=== PATIENT | male | born 1935 | race Caucasian/White ===

== ENCOUNTER → 2017-12-07 | Outpatient (CLI) | payer MEDICARE ==
[2017-07-17 13:08] VITALS: BMI 28.5
[~2017-12-07] MED LIST: ACET-1966 PO; ALL100 PO; ALLO-118 PO; AMLO-98 PO; AMLO-99 PO; ASPI-1471 PO; ASPI-757 PO; ASPI81TA94 PO; BLOO-725 MC; CEFT1VIA52 IV; CHOL100058 PO; COLC0.6T2 PO; DOCU-416 PO; FAMO20TA28 PO; FEBU80TA3 PO; FENO45CA PO; FURO-43 PO; FURO-47 PO; FURO80TA70 PO; GABA-549 PO; GABA300S PO; HYDR-4309 PO; HYDR25TA66 PO; HYDR50TA35 PO; IBUP-1618 PO; IBUP-1671 PO; INSU100C14 SQ; INSU100I28; INSU100I28 SQ; INSU200I SUBQ; INSU300I SC; LANI SUBQ; LOR5/325 PO; MAX75 PO; METO25TA91 PO; NOVALOG SQ; OMEG-11 PO; OMEG500C7 PO; PIOG30TA27 PO; PRAV20TA65 PO; PRE10 PO; SITA100T9 PO; SOME BP MED; SULF1TAB24; TRAM-420 PO; TRIA-18 PO; VALS40TA6 PO; WARF-18 PO; [UNRECOGNIZED DRUG - CODE] PO; insulin SUBQ; water pill
[2017-12-07 11:17] LABS: INR 1.91
== END ==
LOC: LAB 10:55
PROVIDERS: ATTEND Nurse Practitioner Family
DX: I50.9 Heart failure, unspecified (principal); Z86.79 Personal history of other diseases of the circulatory system
CPT/HCPCS: 36415; 85610

== ENCOUNTER → 2017-12-20 | Outpatient (CLI) | payer MEDICARE ==
[2017-07-17 13:08] VITALS: BMI 28.5
[2017-12-20 16:49] LABS: INR 3.27
== END ==
LOC: LAB 16:23
PROVIDERS: ATTEND Nurse Practitioner Family
DX: I50.9 Heart failure, unspecified (principal); Z86.79 Personal history of other diseases of the circulatory system
CPT/HCPCS: 36415; 85610

== ENCOUNTER → 2018-01-07 | Outpatient (CLI) | payer MEDICARE ==
[2017-07-17 13:08] VITALS: BMI 28.5
[~2018-01-07] MED LIST changes: -WARF-18 PO; +WARF5TAB23 PO
[2018-01-07 10:00] LABS: INR 3.31
== END ==
LOC: LAB 09:24
PROVIDERS: ATTEND Nurse Practitioner Family
DX: I50.9 Heart failure, unspecified (principal); Z86.79 Personal history of other diseases of the circulatory system
CPT/HCPCS: 36415; 85610

== ENCOUNTER → 2018-02-04 | Outpatient (CLI) | payer MEDICARE ==
[2017-07-17 13:08] VITALS: BMI 28.5
[2018-02-04 13:03] LABS: INR 3.3
== END ==
LOC: LAB 12:29
PROVIDERS: ATTEND Nurse Practitioner Family
DX: Z86.79 Personal history of other diseases of the circulatory system (principal); I50.9 Heart failure, unspecified
CPT/HCPCS: 36415; 85610

== ENCOUNTER → 2018-02-13 | Outpatient (CLI) | payer MEDICARE ==
[2017-07-17 13:08] VITALS: BMI 28.5
[2018-02-13 15:06] LABS: INR 2.84
== END ==
LOC: LAB 14:46
PROVIDERS: ATTEND Nurse Practitioner Family
DX: I50.9 Heart failure, unspecified (principal); Z86.79 Personal history of other diseases of the circulatory system
CPT/HCPCS: 36415; 85610

== ENCOUNTER → 2018-03-08 | Outpatient (CLI) | payer MEDICARE ==
[2017-07-17 13:08] VITALS: BMI 28.5
[2018-03-08 11:42] LABS: INR 2.46
== END ==
LOC: LAB 10:45
PROVIDERS: ATTEND Nurse Practitioner Family
DX: I50.9 Heart failure, unspecified (principal); N18.3 Chronic kidney disease, stage 3 (moderate); E11.40 Type 2 diabetes mellitus with diabetic neuropathy, unspecified; R60.9 Edema, unspecified; Z86.79 Personal history of other diseases of the circulatory system; G47.33 Obstructive sleep apnea (adult) (pediatric); E78.00 Pure hypercholesterolemia, unspecified; I45.89 Other specified conduction disorders; E55.9 Vitamin D deficiency, unspecified
CPT/HCPCS: 36415; 82040; 82247; 82310; 82374; 82435; 82465; 82565; 82607; 82947; 83036; 83718; 83880; 84075; 84132; 84155; 84295; 84450; 84460; 84478; 84520; 85610

== ENCOUNTER → 2018-03-28 | Outpatient (CLI) | payer MEDICARE ==
[2017-07-17 13:08] VITALS: BMI 28.5
[2018-03-28 11:39] LABS: INR 3.2
== END ==
LOC: LAB 10:57
PROVIDERS: ATTEND Nurse Practitioner Family
DX: I50.9 Heart failure, unspecified (principal); Z86.79 Personal history of other diseases of the circulatory system
CPT/HCPCS: 36415; 85610

== ENCOUNTER → 2018-04-16 | Outpatient (CLI) | payer MEDICARE ==
[2017-07-17 13:08] VITALS: BMI 28.5
[2018-04-16 10:23] LABS: INR 3.05
== END ==
LOC: LAB 09:53
PROVIDERS: ATTEND Nurse Practitioner Family
DX: I50.9 Heart failure, unspecified (principal); Z76.89 Persons encountering health services in other specified circumstances
CPT/HCPCS: 36415; 85610

== ENCOUNTER → 2018-04-23 | Outpatient (CLI) | payer MEDICARE ==
[2017-07-17 13:08] VITALS: BMI 28.5
[2018-04-23 10:21] LABS: INR 3.77
== END ==
LOC: LAB 09:25
PROVIDERS: ATTEND Nurse Practitioner Family
DX: Z51.81 Encounter for therapeutic drug level monitoring (principal); Z86.79 Personal history of other diseases of the circulatory system; I50.9 Heart failure, unspecified
CPT/HCPCS: 85610

== ENCOUNTER → 2018-04-23 | Outpatient (CLI) | payer MEDICARE ==
[2017-07-17 13:08] VITALS: BMI 28.5
[2018-04-23 09:44] LABS: PLATELET COUNT, AUTOMATED 167 K/uL (150-450)
== END ==
LOC: LAB 09:21
PROVIDERS: ATTEND Internal Medicine Nephrology
DX: I12.9 Hypertensive chronic kidney disease with stage 1 through stage 4 chronic kidney disease, or unspecified chronic kidney disease (principal); N18.4 Chronic kidney disease, stage 4 (severe); E11.29 Type 2 diabetes mellitus with other diabetic kidney complication; E55.9 Vitamin D deficiency, unspecified
CPT/HCPCS: 36415; 82040; 82306; 82310; 82374; 82435; 82565; 82947; 83970; 84100; 84132; 84295; 84520; 85025

== ENCOUNTER → 2018-05-08 | Outpatient (CLI) | payer MEDICARE ==
[2017-07-17 13:08] VITALS: BMI 28.5
[2018-05-08 10:39] LABS: INR 2.44
== END ==
LOC: LAB 10:18
PROVIDERS: ATTEND Nurse Practitioner Family
DX: I50.9 Heart failure, unspecified (principal); Z86.79 Personal history of other diseases of the circulatory system
CPT/HCPCS: 36415; 85610

== ENCOUNTER → 2018-05-20 | Outpatient (CLI) | payer MEDICARE ==
[2017-07-17 13:08] VITALS: BMI 28.5
[2018-05-20 09:40] LABS: INR 2.9
== END ==
LOC: LAB 08:32
PROVIDERS: ATTEND Nurse Practitioner Family
DX: I50.9 Heart failure, unspecified (principal); Z86.79 Personal history of other diseases of the circulatory system
CPT/HCPCS: 36415; 85610

== ENCOUNTER → 2018-06-05 | Outpatient (CLI) | payer MEDICARE ==
[2017-07-17 13:08] VITALS: BMI 28.5
[2018-06-05 11:58] LABS: INR 2.48
== END ==
LOC: LAB 11:17
PROVIDERS: ATTEND Nurse Practitioner Family
DX: I50.9 Heart failure, unspecified (principal); Z86.79 Personal history of other diseases of the circulatory system
CPT/HCPCS: 36415; 85610

== ENCOUNTER → 2018-06-10 | Outpatient (CLI) | payer MEDICARE ==
[2017-07-17 13:08] VITALS: BMI 28.5
[2018-06-10 10:54] LABS: INR 2.79
== END ==
LOC: LAB 10:22
PROVIDERS: ATTEND Nurse Practitioner Family
DX: I12.9 Hypertensive chronic kidney disease with stage 1 through stage 4 chronic kidney disease, or unspecified chronic kidney disease (principal); I50.9 Heart failure, unspecified; N18.4 Chronic kidney disease, stage 4 (severe); E11.40 Type 2 diabetes mellitus with diabetic neuropathy, unspecified; E11.29 Type 2 diabetes mellitus with other diabetic kidney complication; R60.9 Edema, unspecified; E55.9 Vitamin D deficiency, unspecified; Z86.79 Personal history of other diseases of the circulatory system
CPT/HCPCS: 36415; 82040; 82247; 82306; 82310; 82374; 82435; 82565; 82607; 82947; 83036; 83880; 84075; 84132; 84155; 84295; 84450; 84460; 84520; 85610

== ENCOUNTER → 2018-06-21 | Outpatient (CLI) | payer MEDICARE ==
[2017-07-17 13:08] VITALS: BMI 28.5
[2018-06-21 14:03] LABS: INR 2.11
== END ==
LOC: LAB 13:41
PROVIDERS: ATTEND Nurse Practitioner Family
DX: I50.9 Heart failure, unspecified (principal); Z86.79 Personal history of other diseases of the circulatory system
CPT/HCPCS: 36415; 85610

== ENCOUNTER → 2018-06-25 | Outpatient (CLI) | payer MEDICARE ==
[2017-07-17 13:08] VITALS: BMI 28.5
[2018-06-25 10:44] LABS: INR 3.94
== END ==
LOC: LAB 10:16
PROVIDERS: ATTEND Nurse Practitioner Family
DX: Z86.79 Personal history of other diseases of the circulatory system (principal); I50.9 Heart failure, unspecified
CPT/HCPCS: 36415; 85610

== ENCOUNTER → 2018-07-05 | Outpatient (CLI) | payer MEDICARE ==
[2017-07-17 13:08] VITALS: BMI 28.5
[2018-07-05 10:53] LABS: INR 3.3
== END ==
LOC: LAB 10:28
PROVIDERS: ATTEND Nurse Practitioner Family
DX: I50.9 Heart failure, unspecified (principal); Z86.79 Personal history of other diseases of the circulatory system
CPT/HCPCS: 36415; 85610

== ENCOUNTER → 2018-07-12 | Outpatient (CLI) | payer MEDICARE ==
[2017-07-17 13:08] VITALS: BMI 28.5
[2018-07-12 12:29] LABS: INR 5.22
== END ==
LOC: LAB 10:40
PROVIDERS: ATTEND Nurse Practitioner Family
DX: Z86.79 Personal history of other diseases of the circulatory system (principal); I50.9 Heart failure, unspecified
CPT/HCPCS: 36415; 85610

== ENCOUNTER → 2018-07-15 | Outpatient (CLI) | payer MEDICARE ==
[2017-07-17 13:08] VITALS: BMI 28.5
[2018-07-15 11:22] LABS: INR 3.54
== END ==
LOC: LAB 10:44
PROVIDERS: ATTEND Nurse Practitioner Family
DX: Z86.79 Personal history of other diseases of the circulatory system (principal); I50.9 Heart failure, unspecified
CPT/HCPCS: 36415; 85610

== ENCOUNTER → 2018-07-19 | Outpatient (CLI) | payer MEDICARE ==
[2017-07-17 13:08] VITALS: BMI 28.5
[2018-07-19 09:31] LABS: INR 1.64
== END ==
LOC: LAB 08:59
PROVIDERS: ATTEND Nurse Practitioner Family
DX: Z86.79 Personal history of other diseases of the circulatory system (principal); I50.9 Heart failure, unspecified
CPT/HCPCS: 36415; 85610

== ENCOUNTER → 2018-07-22 | Outpatient (CLI) | payer MEDICARE ==
[2017-07-17 13:08] VITALS: BMI 28.5
[2018-07-22 11:37] LABS: INR 1.36
== END ==
LOC: LAB 11:02
PROVIDERS: ATTEND Nurse Practitioner Family
DX: Z86.79 Personal history of other diseases of the circulatory system (principal); I50.9 Heart failure, unspecified
CPT/HCPCS: 36415; 85610

== ENCOUNTER → 2018-08-06 | Outpatient (CLI) | payer MEDICARE ==
[2017-07-17 13:08] VITALS: BMI 28.5
[~2018-08-06] MED LIST changes: +AMLO-113 PO; -AMLO-99 PO
[2018-08-06 10:03] LABS: INR 3.76
== END ==
LOC: LAB 09:36
PROVIDERS: ATTEND Nurse Practitioner Family
DX: Z86.79 Personal history of other diseases of the circulatory system (principal); I50.9 Heart failure, unspecified
CPT/HCPCS: 36415; 85610

== ENCOUNTER → 2018-08-14 | Outpatient (CLI) | payer MEDICARE ==
[2017-07-17 13:08] VITALS: BMI 28.5
[2018-08-14 11:21] LABS: INR 4.53
== END ==
LOC: LAB 10:37
PROVIDERS: ATTEND Nurse Practitioner Family
DX: Z86.79 Personal history of other diseases of the circulatory system (principal); I50.9 Heart failure, unspecified
CPT/HCPCS: 36415; 85610

== ENCOUNTER → 2018-08-14 | Outpatient (CLI) | payer MEDICARE ==
[2017-07-17 13:08] VITALS: BMI 28.5
[2018-08-14 11:00] LABS: PLATELET COUNT, AUTOMATED 176 K/uL (150-450)
== END ==
LOC: LAB 10:36
PROVIDERS: ATTEND Nurse Practitioner Family
DX: I50.9 Heart failure, unspecified (principal); N18.3 Chronic kidney disease, stage 3 (moderate); E11.40 Type 2 diabetes mellitus with diabetic neuropathy, unspecified; R60.0 Localized edema; S81.802D Unspecified open wound, left lower leg, subsequent encounter; E78.00 Pure hypercholesterolemia, unspecified; I10 Essential (primary) hypertension
CPT/HCPCS: 82040; 82247; 82306; 82310; 82374; 82435; 82465; 82565; 82607; 82947; 83036; 83718; 83880; 84075; 84132; 84155; 84295; 84443; 84450; 84460; 84478; 84520; 85025

== ENCOUNTER → 2018-08-22 | Outpatient (CLI) | payer MEDICARE ==
[2017-07-17 13:08] VITALS: BMI 28.5
[2018-08-22 11:05] LABS: INR 2.9
== END ==
LOC: LAB 10:28
PROVIDERS: ATTEND Nurse Practitioner Family
DX: Z51.81 Encounter for therapeutic drug level monitoring (principal); I50.9 Heart failure, unspecified; Z86.79 Personal history of other diseases of the circulatory system
CPT/HCPCS: 36415; 85610

== ENCOUNTER → 2018-08-29 | Outpatient (CLI) | payer MEDICARE ==
[2017-07-17 13:08] VITALS: BMI 28.5
[2018-08-29 09:44] LABS: INR 3.64
== END ==
LOC: LAB 08:47
PROVIDERS: ATTEND Nurse Practitioner Family
DX: I50.9 Heart failure, unspecified (principal); Z86.79 Personal history of other diseases of the circulatory system
CPT/HCPCS: 36415; 85610

== ENCOUNTER → 2018-08-29 | Outpatient (CLI) | payer MEDICARE ==
[2017-07-17 13:08] VITALS: BMI 28.5
[2018-08-29 09:17] LABS: PLATELET COUNT, AUTOMATED 174 K/uL (150-450)
== END ==
LOC: LAB 08:42
PROVIDERS: ATTEND Nurse Practitioner Family
DX: I12.9 Hypertensive chronic kidney disease with stage 1 through stage 4 chronic kidney disease, or unspecified chronic kidney disease (principal); I50.9 Heart failure, unspecified; N18.3 Chronic kidney disease, stage 3 (moderate); E11.40 Type 2 diabetes mellitus with diabetic neuropathy, unspecified; R60.0 Localized edema; S81.802D Unspecified open wound, left lower leg, subsequent encounter; E78.00 Pure hypercholesterolemia, unspecified
CPT/HCPCS: 82040; 82247; 82306; 82310; 82374; 82435; 82465; 82565; 82607; 82947; 83036; 83718; 83880; 84075; 84132; 84155; 84295; 84443; 84450; 84460; 84478; 84520; 85025

== ENCOUNTER → 2018-09-16 | Outpatient (CLI) | payer MEDICARE ==
[2017-07-17 13:08] VITALS: BMI 28.5
[~2018-09-16] MED LIST changes: -HYDR-4309 PO; +HYDR-653 PO
[2018-09-16 12:54] LABS: INR 4.39
== END ==
LOC: LAB 12:23
PROVIDERS: ATTEND Nurse Practitioner Family
DX: I50.9 Heart failure, unspecified (principal); Z86.79 Personal history of other diseases of the circulatory system
CPT/HCPCS: 36415; 85610

== ENCOUNTER → 2018-09-25 | Outpatient (CLI) | payer MEDICARE ==
[2017-07-17 13:08] VITALS: BMI 28.5
[2018-09-25 11:07] LABS: INR 3.28
== END ==
LOC: LAB 10:20
PROVIDERS: ATTEND Nurse Practitioner Family
DX: Z86.79 Personal history of other diseases of the circulatory system (principal); I50.9 Heart failure, unspecified
CPT/HCPCS: 36415; 85610

== ENCOUNTER 2018-10-04 10:00 | Outpatient (RCR) | payer MEDICARE ==
[2017-07-17 13:08] VITALS: BMI 28.5
--- NOTE | 2018-09-04 11:27 | PT INITIAL EVALUATION ---
MEDICAL DIAGNOSIS: unroofed blister L)anterior sandra; complicated by venous insufficiency & DM TREATMENT DIAGNOSIS: same DATE OF ONSET: SUBJECTIVE: Pt seen this morning by his repairer, Dr. Jovel, who referred him for wound care due to extensive epidermal skin loss at L) anterior sandra. Pt notes that he has been seeing his PCP ADINA Riley for skin care due to previous "boils" that tend to errupt on his lower legs. Pt describes a clear dressing that was placed on at previous visit, but when he removed it, it tore away the entire epidermal layer, similar to unroofing a blister. Pt now presents with significant drainage and bleeding that has soaked through an abd pad. REHAB PROBLEM LIST: Open wound at L) anterior sandra PREVIOUS MEDICAL HISTORY: DMII, diabetic neuropathy, MT (2013),CABG (2013), L) great toe amputation (2013), R) 2nd toe dorsum of DIP healed wound (April 2017), L) TKA (Jul 2017). 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 90% granulation tissue with 10% yellow slough at medial side. Girth of ankle: R)30cm L)30.5cm. Girth of calf: R)42cm L)42.5cm ASSESSMENT: Non-excisional debridement completed with the use of tweezers to a depth of subcutaneous tissue in order to remove loosely adhered yellow slough at medial side of wound bed. Base of wound is comprised of 90% granulation tissue and 10% yellow slough. Wound cleansed with sterile saline and covered with vasaline gauze, followed by non-adherent optilock absorbant dressing, secured with coflex 2 stage lite compression wrap in a retrograde manner to gently address edema. Pt encouraged to elevate LE's as able to address edema as well. Short Term Goals 1. Wound to demo 100% granulation base with no signs or symptoms of infection 2. Pt to maintain a clean, dry and intact dressing between visits 3. Wound bed to demo full epithelialization 4. Pt to be aware of strategies to minimize skin complications and irritations in the future including application of hypoallergenic moisturizer, skin inspections and elevation to reduce edema. Patient's Goals Wound to heal quickly without further complications PLAN: Patient to be seen for Non-excisional, selective debridement and selection of advanced wound care products to facilitate improved healing and reduce risk of infection. 1x/Week for up to 3 months Thank you for this referral. If you have any questions, comments, or concerns about this report or plan, please contact me at . H. Eugenia Reyes, PT, MPT, OMS MTDD
--- NOTE | 2018-10-04 18:08 | PT PLAN OF CARE ---
Physician: Dr. Med DPM Patient is being seen: Abe Yoni Therapist: Michaela Reyes, PT, MPT, OMS Medical Diagnosis: unroofed blister L)anterior sandra; complicated by venous insufficiency & DM Treatment Diagnosis: same Date of Onset: 09/02/18 Date of Initial Evaluation: 09/02/18 Date patient was last seen: 10/04/18 Number of treatments: 5 Number of cancellations/No shows: 0 INTERVENTIONS: Non-excisional, selective debridement and selection of advanced wound care products to facilitate improved healing and reduce risk of infection. GOALS: 1.Wound to demo 100% granulation base with no signs or symptoms of infection 2. Pt to maintain a clean, dry and intact dressing between visits 3. Wound bed to demo full epithelialization 4. Pt to be aware of strategies to minimize skin complications and irritations in the future including application of hypoallergenic moisturizer, skin inspections and elevation to reduce edema. PATIENT'S GOAL: Wound to heal quickly without further complications Status of Patient's Goals: Met Patient Compliance: excellent Prognosis: Good Reasons for continuing therapy: None at this time; wound area is fully healed and pt verbalizes understanding of preventative strategies to protect skin a prevent further issues related to venous insufficiency. Pt to follow up with PCP ADINA Bell and Dr. Jose Jovel DPM as indicated. Pt does note some areas of rubbing at toes on B) feet and will consult with DPM regarding updated diabetic shoe purchase and fitting. (09/02/18) Girth of ankle: R) 30cm L) 30.5cm. Girth of calf: R) 42cm L) 42.5cm (10/04/18) Girth of ankle: R) 27.5cm L) 28cm Girth of calf: R) 41cm L) 42.5cm (09/02/18) wound measurement: L) anterior sandra: 13.5cm L x 12.5cm W x 0.2cm D. (10/04/18) healed Thank you for this referral. If you have any questions, comments, or concerns about this report or plan, please contact me at . Michaela Reyes, PT, MPT, OMS MTDD
== END 2018-10-04 18:00 | disposition home or self-care (01) ==
LOC: PT 10:00
PROVIDERS: ATTEND Podiatrist Foot & Ankle Surgery
DX: L97.521 Non-pressure chronic ulcer of other part of left foot limited to breakdown of skin (principal); L97.821 Non-pressure chronic ulcer of other part of left lower leg limited to breakdown of skin; I87.2 Venous insufficiency (chronic) (peripheral); E11.40 Type 2 diabetes mellitus with diabetic neuropathy, unspecified; I25.2 Old myocardial infarction; Z95.1 Presence of aortocoronary bypass graft; Z96.652 Presence of left artificial knee joint
CPT/HCPCS: 97161

== ENCOUNTER → 2018-10-14 | Outpatient (CLI) | payer MEDICARE ==
[2017-07-17 13:08] VITALS: BMI 28.5
[2018-10-14 13:05] LABS: INR 1.95
== END ==
LOC: LAB 12:45
PROVIDERS: ATTEND Nurse Practitioner Family
DX: I50.9 Heart failure, unspecified (principal); Z86.79 Personal history of other diseases of the circulatory system
CPT/HCPCS: 36415; 85610

== ENCOUNTER → 2018-11-22 | Outpatient (CLI) | payer MEDICARE ==
[2017-07-17 13:08] VITALS: BMI 28.5
[2018-11-22 11:25] LABS: INR 2.27
== END ==
LOC: LAB 10:57
PROVIDERS: ATTEND Nurse Practitioner Family
DX: Z95.1 Presence of aortocoronary bypass graft (principal)
CPT/HCPCS: 36415; 85610

== ENCOUNTER → 2018-12-05 | Outpatient (CLI) | payer MEDICARE ==
[2017-07-17 13:08] VITALS: BMI 28.5
[~2018-12-05] MED LIST changes: -AMLO-113 PO; +AMLO-127 PO
== END ==
LOC: LAB 12:29
PROVIDERS: ATTEND Nurse Practitioner Family
DX: I10 Essential (primary) hypertension (principal); I50.9 Heart failure, unspecified; E11.9 Type 2 diabetes mellitus without complications; E78.00 Pure hypercholesterolemia, unspecified; Z95.1 Presence of aortocoronary bypass graft; Z86.79 Personal history of other diseases of the circulatory system; I45.89 Other specified conduction disorders
CPT/HCPCS: 36415; 82040; 82247; 82310; 82374; 82435; 82465; 82565; 82947; 83036; 83718; 83880; 84075; 84132; 84155; 84295; 84450; 84460; 84478; 84520

== ENCOUNTER → 2018-12-26 | Outpatient (CLI) | payer MEDICARE ==
[2017-07-17 13:08] VITALS: BMI 28.5
[2018-12-26 11:36] LABS: INR 3.09
== END ==
LOC: LAB 11:13
PROVIDERS: ATTEND Nurse Practitioner Family
DX: I45.89 Other specified conduction disorders (principal); Z86.79 Personal history of other diseases of the circulatory system; Z95.1 Presence of aortocoronary bypass graft
CPT/HCPCS: 36415; 85610

== ENCOUNTER → 2019-01-13 | Outpatient (CLI) | payer MEDICARE ==
[2017-07-17 13:08] VITALS: BMI 28.5
[2019-01-13 08:44] LABS: INR 2.68
== END ==
LOC: LAB 08:26
PROVIDERS: ATTEND Nurse Practitioner Family
DX: I45.89 Other specified conduction disorders (principal); Z95.1 Presence of aortocoronary bypass graft; Z86.79 Personal history of other diseases of the circulatory system
CPT/HCPCS: 36415; 85610

== ENCOUNTER → 2019-01-31 | Outpatient (CLI) | payer MEDICARE ==
[2017-07-17 13:08] VITALS: BMI 28.5
[2019-01-31 10:51] LABS: INR 2.14
== END ==
LOC: LAB 10:23
PROVIDERS: ATTEND Nurse Practitioner Family
DX: I45.89 Other specified conduction disorders (principal); Z86.79 Personal history of other diseases of the circulatory system; Z95.1 Presence of aortocoronary bypass graft
CPT/HCPCS: 36415; 85610

== ENCOUNTER → 2019-02-12 | Outpatient (CLI) | payer MEDICARE ==
[2017-07-17 13:08] VITALS: BMI 28.5
[2019-02-12 11:05] LABS: INR 2.48
== END ==
LOC: LAB 10:25
PROVIDERS: ATTEND Nurse Practitioner Family
DX: I45.89 Other specified conduction disorders (principal); Z86.79 Personal history of other diseases of the circulatory system; Z95.1 Presence of aortocoronary bypass graft
CPT/HCPCS: 36415; 85610

== ENCOUNTER → 2019-02-12 | Outpatient (CLI) | payer MEDICARE ==
[2017-07-17 13:08] VITALS: BMI 28.5
== END ==
LOC: LAB 10:18
DX: I12.9 Hypertensive chronic kidney disease with stage 1 through stage 4 chronic kidney disease, or unspecified chronic kidney disease (principal); E11.29 Type 2 diabetes mellitus with other diabetic kidney complication; N18.4 Chronic kidney disease, stage 4 (severe); E55.9 Vitamin D deficiency, unspecified
CPT/HCPCS: 36415; 82040; 82310; 82374; 82435; 82565; 82570; 82947; 83970; 84100; 84132; 84156; 84295; 84520; 85018

== ENCOUNTER → 2019-02-14 | Outpatient (CLI) | payer MEDICARE ==
[2017-07-17 13:08] VITALS: BMI 28.5
== END ==
LOC: LAB 14:14
PROVIDERS: ATTEND Internal Medicine Cardiovascular Disease
DX: I25.10 Atherosclerotic heart disease of native coronary artery without angina pectoris (principal)
CPT/HCPCS: 36415; 82310; 82374; 82435; 82565; 82947; 84132; 84295; 84520; 85027

== ENCOUNTER → 2019-02-21 | Outpatient (CLI) | payer MEDICARE ==
[2017-07-17 13:08] VITALS: BMI 28.5
[2019-02-21 11:12] LABS: INR 1.37
== END ==
LOC: LAB 10:48
PROVIDERS: ATTEND Nurse Practitioner Family
DX: I45.89 Other specified conduction disorders (principal); Z86.79 Personal history of other diseases of the circulatory system; Z95.1 Presence of aortocoronary bypass graft
CPT/HCPCS: 36415; 85610

== ENCOUNTER → 2019-02-24 | Outpatient (CLI) | payer MEDICARE ==
[2017-07-17 13:08] VITALS: BMI 28.5
[2019-02-24 10:25] LABS: INR 1.61
== END ==
LOC: LAB 09:46
PROVIDERS: ATTEND Nurse Practitioner Family
DX: I45.89 Other specified conduction disorders (principal); Z95.1 Presence of aortocoronary bypass graft; Z86.79 Personal history of other diseases of the circulatory system
CPT/HCPCS: 36415; 85610

== ENCOUNTER → 2019-03-03 | Outpatient (CLI) | payer MEDICARE ==
[2017-07-17 13:08] VITALS: BMI 28.5
[2019-03-03 13:33] LABS: INR 2.37
== END ==
LOC: LAB 13:03
PROVIDERS: ATTEND Nurse Practitioner Family
DX: I45.89 Other specified conduction disorders (principal); Z86.79 Personal history of other diseases of the circulatory system
CPT/HCPCS: 36415; 85610

== ENCOUNTER → 2019-03-07 | Outpatient (CLI) | payer MEDICARE ==
[2017-07-17 13:08] VITALS: BMI 28.5
[2019-03-07 14:30] LABS: INR 2.24
== END ==
LOC: LAB 13:57
PROVIDERS: ATTEND Nurse Practitioner Family
DX: Z12.5 Encounter for screening for malignant neoplasm of prostate (principal); E87.8 Other disorders of electrolyte and fluid balance, not elsewhere classified; R73.01 Impaired fasting glucose; Z95.1 Presence of aortocoronary bypass graft; I45.89 Other specified conduction disorders; Z86.79 Personal history of other diseases of the circulatory system
CPT/HCPCS: 36415; 82040; 82247; 82310; 82374; 82435; 82565; 82947; 83036; 83880; 84075; 84132; 84153; 84155; 84295; 84450; 84460; 84520; 85610

== ENCOUNTER 2019-03-19 11:00 | Outpatient (RCR) | payer MEDICARE ==
[2017-07-17 13:08] VITALS: BMI 28.5
== END 2019-03-19 18:00 | disposition home or self-care (01) ==
LOC: PT 11:00
PROVIDERS: ATTEND Podiatrist Foot & Ankle Surgery
DX: E11.621 Type 2 diabetes mellitus with foot ulcer (principal); L97.523 Non-pressure chronic ulcer of other part of left foot with necrosis of muscle
CPT/HCPCS: 97161

== ENCOUNTER 2019-03-20 00:07 | Day surgery (SDC) | payer MEDICARE ==
[2017-07-17 13:08] VITALS: Ht 188 cm; Wt 101.2 kg
[2019-03-20] VITALS (7 sets, daily range): BP systolic 102–119; BP diastolic 62–75
[~2019-03-20] VITALS: Ht 188 cm; Wt 101.2 kg
[2019-03-20] MEDS ORDERED: FAMOTIDINE 20 MG TAB PO ONE (06:15)
[2019-03-20] MEDS ORDERED: ROPIVACAINE 0.5% 20 ML VIAL ONE (07:03)
[2019-03-20] MEDS ORDERED: NEOMYCIN/POLYMYX/BACITR 30 GM TP ONE (07:03)
[2019-03-20 07:14] LABS: INR 1.12
--- NOTE | 2019-03-20 07:17 | EKG ---
FACILITY: [facility] PATIENT NAME: JUDSON SUÁREZ : [id number] MR: [id number] V: [id number] EXAM DATE: ORDERING PHYSICIAN: KATHERINE ARTEAGA TECHNOLOGIST: Test Reason : Pre-op Blood Pressure : / mmHG Vent. Rate : 070 BPM Atrial Rate : 071 BPM P-R Int : 000 ms QRS Dur : 196 ms QT Int : 514 ms P-R-T Axes : 000 241 090 degrees QTc Int : 555 ms Ventriularly paced rhythym Abnormal ECG When compared with ECG of 08-JUN-2017 08:51, Ventricular pacing has replaced sinus rhythm Confirmed by Dylan Horne ([id number]) on 03/20/2019 7:40:00 AM Referred By: Confirmed By:Dylan Eric
[2019-03-20] MEDS ORDERED: PROPOFOL EMUL(*) 10MG/ML 20 ML 20 ML ONE (07:28)
[2019-03-20] MEDS ORDERED: MIDAZOLAM 2 MG/2 ML VIAL ONE (07:30)
[2019-03-20] MEDS ORDERED: LIDOCAINE/SOD BICARB 8.4% SYR ID ONE (08:00)
[2019-03-20] MEDS ORDERED: NORMOSOL R SOLN(*) 1000 ML BAG 1,000 ML IV PRN (08:00)
[2019-03-20] MEDS ORDERED: AMPICILLIN/SULBACT (*) 3 GM VL 3 GM in NS(*) 0.9% 100 ML MINI-BAG 100 ML IVPB ONE (08:00)
--- NOTE | 2019-03-20 08:28 | Short(Outpt) Discharge Summary ---
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 Departure Discharge to: Home, Self Care Discharge Instructions Home Meds Reported Medications Furosemide (FUROSEMIDE) 80 Mg Tablet, 80 TAB PO /, TAB 07/16/17 Acetaminophen (TYLENOL) 325 Mg Tablet, 2-3 TAB PO PRN, TAB 07/11/17 Tramadol Hcl (TRAMADOL HCL) 50 Mg Tablet, 50 MG PO Q4-6H PRN for PAIN, TAB 07/11/17 Metoprolol Succinate (TOPROL XL) 25 Mg Tab.er.24h, 1 TAB PO HS, TAB 07/11/17 Warfarin Sodium (WARFARIN SODIUM) 5 Mg Tablet, 5 MG PO sun/mon/sun/sun/sat, TAB 07/11/17 Warfarin Sodium (WARFARIN SODIUM) 5 Mg Tablet, 7.5 MG PO /, TAB 07/11/17 [place]-3 Fatty Acids/Fish Oil (FISH OIL 1,000 MG CAPSULE) 1 Each Capsule, 1 EACH PO DAILY, CAPSULE 07/11/17 Insulin Glargine,Hum.rec.anlog (Guillermo Alexander) 300 Unit/1 Ml Insuln.pen, 30 UNITS SC DAILY 07/11/17 Insulin Lispro 100 Un/Ml Pen (HUMALOG 3 ML PEN) 100 Unit/1 Ml Insuln.pen, 18 UNIT SQ TIDAC, DIS.SYR 07/11/17 Aspirin (ASPIR 81) 81 Mg Tablet.dr, 81 MG PO QDAY, TAB 07/11/17 Hydralazine Hcl (HYDRALAZINE HCL) 25 Mg Tablet, 1 TAB PO TID, TAB 03/27/17 Blood Sugar Diagnostic (CONTOUR) 1 Each Strip, 1 EACH MC TID, STRIP 03/27/17 Febuxostat (ULORIC) 80 Mg Tablet, 80 MG PO DAILY 07/03/16 Furosemide (FUROSEMIDE) 40 Mg Tablet, 1 TAB PO sun/mon/sun/sun/sat, TAB 04/06/16 Gabapentin (GABAPENTIN) 300 Mg Capsule, 300 MG PO DAILY, CAPSULE 04/06/16 Pravastatin Sodium (PRAVACHOL) 20 Mg Tablet, 20 MG PO QHS 01/26/14 Cholecalciferol (Vitamin D3) (VITAMIN D) 1,000 Unit Capsule, 2000 UNIT PO DAILY, CAPSULE 01/23/14 Colchicine (COLCRYS) 0.6 Mg Tablet, 0.6 MG PO DAILY 01/23/14 Follow up Referrals: General Surgery - 04/04/19 @ Surgery, General with KATHERINE ALFREDO MD You have a follow up appointment scheduled with Dr. Alfredo on 04/04/19, at 9:00am. Diet: Diabetic Activity: As Tolerated Special Instructions: You may remove the white surgical dressing on 03/22/19, then you can shower. After showering, apply antibiotic ointment (your choice) on the incision and sutures and apply a new bandaid to cover the incision and change this daily. Do not immerse the incision for 2 weeks. KATHERINE ALFREDO MD March 20, 2019 08:28
--- NOTE | 2019-03-20 08:34 | Post Operative Progress Note ---
Post Operative Progress Note Date: March 20, 2019 Time: 08:29 Surgeon: Sayda Dictation number: [id number] Anesthesia: TIVA by Dr. Stewart Pre-Op Diagnosis: Left second toe ulceration with exposed bone Post-Op Diagnosis: PACO Findings: C/W dx Procedure(s): Left second toe amputation through proximal phalanx Specimen Removed:(May be N/A): Left second toe Complications: None Fluids: See anesthesia record Estimated Blood Loss: Minimal Date OP Note Dictated: March 20, 2019 Time OP Note Dictated: 08:30 KATHERINE MATT MD March 20, 2019 08:34
--- NOTE | 2019-03-20 08:50 | NUR ---
0840 SBAR FROM Anuja GRANDA RN 0845 VSS, PT DENIES PAIN/NAUSEA, TOLERATING CHEESE, CRACKERS, COFFEE, AND PUDDING. SON AT BEDSIDE, DRESSING C/D/I, DOWN TO 2L NC, SATTING MID 90S.
--- NOTE | 2019-03-20 09:02 | OPERATIVE REPORT 1 ---
EVENT DATE: March 20, 2019 SURGEON: Wolfgang Alfredo MD ANESTHESIOLOGIST: Darryn Stewart MD ANESTHESIA: TIVA PREOPERATIVE DIAGNOSIS Left second toe ulcer with exposed bone. POSTOPERATIVE DIAGNOSIS Left second toe ulcer with exposed bone. PROCEDURE PERFORMED Left second toe amputation through the proximal phalanx. COMPLICATIONS None. CONDITION Stable. ESTIMATED BLOOD LOSS Minimal. INDICATIONS This is an 83-year-old gentleman who is a diabetic and also has peripheral vascular disease, who was referred to me with some ulcers on his left second toe and when I examined him, he had bone protruding through the ulcer that was easily palpable. I consented him for a toe amputation. DESCRIPTION OF PROCEDURE The patient was brought to the operating room and placed supine on the operating table. TIVA anesthesia was administered and I injected the left second toe with 0.5% Ropivacaine plain in a digital ring block fashion. His foot was then prepped and draped in sterile fashion. A timeout was completed and I marked the skin and then made an incision in the skin in a fish-mouth type configuration to preserve as much healthy skin as I could. I dissected through all of the soft tissues around the bone, amputated the toe through the proximal inner phalangeal joint and then passed the toe off the field. I then used a periosteal elevator to separate the soft tissue from the proximal phalanx and the divided the proximal phalanx in the mid-shaft area. This was then passed off the field. I irrigated and dried the wound to make sure there were no sharp bone shards and then I reapproximated the flexor and extensor tendons with interrupted 3-0 Vicryl sutures and closed the skin with interrupted 3-0 nylon sutures. The skin was cleaned and dried and bacitracin antibiotic ointment was applied to the incision, followed by sterile surgical dressing. The patient was then brought to the recovery room in stable condition having tolerated the procedure without any apparent problems. FERNIE
--- NOTE | 2019-03-20 09:14 | NUR ---
0900 PT DOWN TO RA, SATS HOLDING ABOVE 90%, READY TO TRY GETTING UP
--- NOTE | 2019-03-20 10:16 | NUR ---
0915 ORTHOSTATICS DONE, STABLE, BLEEDING OBSERVED FROM DRESSING, SPOKE WITH DR. MATT AND HE WOULD LIKE TO REINFORCE WITH KERLEX AND WRAP WITH JEANNE BANDAGE TO PROVIDE SOME PRESSURE. DR. MATT ALSO SPOKE WIHT PT AND PT'S SON ABOUT PLANS TO REINFORCE DRESSING. 0930 REINFORCED DRESSING AND APPLIED PRESSURE DRESSING AND NON SKID SOCK, D/C IV FROM TUBING, ENTIRE BAG INFUSED, ALLOWED TO DRESS. 0940 D/C INSTRUCTIONS COVERED, ALL QUESTIONS ANSWERED, PROVIDED WITH EXTRA DRESSING CHANGE MATERIALS. 0950 IV OUT, PRESSURE DRESSING APPLIED, REASSESSED, WNL, PT ACCEPTED WC RIDE OUT TO CAR OUTSIDE OF ER ENTRANCE, SELF TRANSFERRED INTO PICKUP WITHOUT INCIDENT, SAFETY MAINTAINED, PT DENIES ANY PAIN. ALL BELONGINGS WITH PT.
== END 2019-03-20 09:54 | disposition home or self-care (01) ==
LOC: OR 00:07
PROVIDERS: ATTEND Surgery
DX: M86.172 Other acute osteomyelitis, left ankle and foot (principal); I12.9 Hypertensive chronic kidney disease with stage 1 through stage 4 chronic kidney disease, or unspecified chronic kidney disease; E11.22 Type 2 diabetes mellitus with diabetic chronic kidney disease; N18.9 Chronic kidney disease, unspecified; Z79.4 Long term (current) use of insulin
CPT/HCPCS: 28160; 36415; 36416; 82948; 85610; 88305; 88311; 93005; A9270; J0295; J2250; J2704; J2795

== ENCOUNTER → 2019-04-04 | Outpatient (CLI) | payer MEDICARE ==
[2017-07-17 13:08] VITALS: BMI 28.5
[2019-04-04 10:06] LABS: INR 1.62
== END ==
LOC: LAB 09:36
PROVIDERS: ATTEND Nurse Practitioner Family
DX: Z86.79 Personal history of other diseases of the circulatory system (principal); I45.89 Other specified conduction disorders
CPT/HCPCS: 36415; 85610

== ENCOUNTER → 2019-04-07 | Outpatient (CLI) | payer MEDICARE ==
[2017-07-17 13:08] VITALS: BMI 28.5
[2019-04-07 11:08] LABS: INR 2.52
== END ==
LOC: LAB 10:34
PROVIDERS: ATTEND Nurse Practitioner Family
DX: Z95.1 Presence of aortocoronary bypass graft (principal); Z86.79 Personal history of other diseases of the circulatory system; I45.89 Other specified conduction disorders
CPT/HCPCS: 36415; 85610

== ENCOUNTER → 2019-04-18 | Outpatient (CLI) | payer MEDICARE ==
[2017-07-17 13:08] VITALS: BMI 28.5
[2019-04-18 09:08] LABS: INR 3.23
== END ==
LOC: LAB 08:46
PROVIDERS: ATTEND Nurse Practitioner Family
DX: I45.89 Other specified conduction disorders (principal); Z86.79 Personal history of other diseases of the circulatory system; Z95.1 Presence of aortocoronary bypass graft
CPT/HCPCS: 36415; 85610

== ENCOUNTER → 2019-04-25 | Outpatient (CLI) | payer MEDICARE ==
[2017-07-17 13:08] VITALS: BMI 28.5
[2019-04-25 10:48] LABS: INR 2.73
== END ==
LOC: LAB 10:11
PROVIDERS: ATTEND Nurse Practitioner Family
DX: I45.89 Other specified conduction disorders (principal); Z95.1 Presence of aortocoronary bypass graft; Z86.79 Personal history of other diseases of the circulatory system
CPT/HCPCS: 36415; 85610

== ENCOUNTER → 2019-05-20 | Outpatient (CLI) | payer MEDICARE ==
[2017-07-17 13:08] VITALS: BMI 28.5
[2019-05-20 13:31] LABS: INR 5.58
== END ==
LOC: LAB 12:43
PROVIDERS: ATTEND Nurse Practitioner Family
DX: Z86.79 Personal history of other diseases of the circulatory system (principal); I45.89 Other specified conduction disorders
CPT/HCPCS: 36415; 85610

== ENCOUNTER → 2019-05-26 | Outpatient (CLI) | payer MEDICARE ==
[2017-07-17 13:08] VITALS: BMI 28.5
[2019-05-26 11:42] LABS: INR 2.48
== END ==
LOC: LAB 11:15
PROVIDERS: ATTEND Nurse Practitioner Family
DX: I45.89 Other specified conduction disorders (principal); Z95.1 Presence of aortocoronary bypass graft; Z86.79 Personal history of other diseases of the circulatory system
CPT/HCPCS: 36415; 85610

== ENCOUNTER → 2019-05-27 | Outpatient (CLI) | payer MEDICARE ==
[2017-07-17 13:08] VITALS: BMI 28.5
[2019-05-27 09:40] LABS: PLATELET COUNT, AUTOMATED 242 K/uL (150-450)
--- NOTE | 2019-05-27 10:15 | RADIOLOGY IMAGING REPORT ---
FACILITY: [facility] PATIENT NAME: Abe Vallejo : 1935 MR: [id number] V: [id number] EXAM DATE: ORDERING PHYSICIAN: EMILY SHETH TECHNOLOGIST: Location: [facility] Patient: Abe Vallejo : 1935 Visit/Account:[id number] Date of Sevice: 05/27/2019 XR WRIST 3 OR MORE VIEWS RT History: Right wrist pain. Comparison study: None. Findings: There is diffuse osteopenia but no fracture involving the right wrist. There are findings of joint space now with subchondral sclerosis at the right first CMC joint suggest lizeth of osteoarthrosis. Findings of osteoarthrosis are noted at the right first CMC joint and to a le sser extent there are mild findings of osteoarthrosis in the triscaphe joint. There are degenerative cysts in the scaphoid bone. There is mild chondrocalcinosis and there is vascular calcification. IMPRESSION: 1. Osteopenia without fracture. 2. Findings of osteoarthrosis most prominent in the right first CMC and first MCP joints as describe d above. 3. Chondrocalcinosis. Report Dictated By: Vipul Martines MD at 05/27/2019 10:05 AM Report E-Signed By: Vipul Martines MD at 05/27/2019 10:06 AM WSN:HARLEY
== END ==
LOC: LAB 09:16
PROVIDERS: ATTEND Nurse Practitioner Family
DX: M85.841 Other specified disorders of bone density and structure, right hand (principal); M11.241 Other chondrocalcinosis, right hand; S80.822S Blister (nonthermal), left lower leg, sequela; M10.9 Gout, unspecified; E11.9 Type 2 diabetes mellitus without complications; I77.9 Disorder of arteries and arterioles, unspecified; L89.893 Pressure ulcer of other site, stage 3; L97.929 Non-pressure chronic ulcer of unspecified part of left lower leg with unspecified severity; E78.00 Pure hypercholesterolemia, unspecified; D51.0 Vitamin B12 deficiency anemia due to intrinsic factor deficiency; E55.9 Vitamin D deficiency, unspecified; I50.9 Heart failure, unspecified
CPT/HCPCS: 36415; 82040; 82247; 82306; 82310; 82374; 82435; 82465; 82565; 82607; 82947; 83036; 83718; 83880; 84075; 84132; 84155; 84295; 84450; 84460; 84478; 84520; 84550; 85025; 85651

== ENCOUNTER 2019-05-28 09:51 | Day surgery (SDC) | payer MEDICARE ==
[2017-07-17 13:08] VITALS: Ht 185.4 cm; Wt 99.8 kg
[~2019-05-28] VITALS: Ht 185.4 cm; Wt 99.8 kg
[2019-05-28] VITALS (7 sets, daily range): BP systolic 107–130; BP diastolic 63–84
[~2019-05-28 09:51] MED LIST changes: +AMPICILLIN/SULBACT (*) 3 GM VL 3 GM in NS(*) 0.9% 100 ML MINI-BAG 100 ML IVPB ONE
[2019-05-28 10:26] LABS: PLATELET COUNT, AUTOMATED 241 K/uL (150-450)
[2019-05-28 10:37] LABS: INR 2.36
[2019-05-28] MEDS ORDERED: PROPOFOL EMUL(*) 10MG/ML 20 ML 20 ML ONE (10:45)
[2019-05-28] MEDS ORDERED: LIDOCAINE MPF 1% 5 ML VIAL ONE (10:50)
[2019-05-28] MEDS ORDERED: FAMOTIDINE 20 MG TAB PO ONE (11:10)
[2019-05-28] MEDS ORDERED: LIDOCAINE/SOD BICARB 8.4% SYR ID ONE (11:15)
[2019-05-28] MEDS ORDERED: MIDAZOLAM 2 MG/2 ML VIAL IVP PRN (11:15)
[2019-05-28] MEDS ORDERED: NORMOSOL R SOLN(*) 1000 ML BAG 1,000 ML IV PRN (11:15)
[2019-05-28] MEDS ORDERED: ePHEDrine 25 MG/5 ML DISP.SYR IVP ONE (11:26)
[2019-05-28] MEDS ORDERED: ROPIVACAINE 0.5% 20 ML VIAL ONE (11:42)
[2019-05-28] MEDS ORDERED: NEOMYCIN/POLYMYX/BACITR 30 GM TP ONE (11:42)
--- NOTE | 2019-05-28 13:08 | Short(Outpt) Discharge Summary ---
Discharge Summary Reason for Hosp/Final Diag: (1) Open wound of third toe of left foot Status: Acute Hospital Course & Plan: Left 3rd toe amputation completed without problems. Departure Discharge to: Home, Self Care Discharge Instructions Home Meds Reported Medications Furosemide (FUROSEMIDE) 80 Mg Tablet, 80 TAB PO /th, TAB 07/16/17 Acetaminophen (TYLENOL) 325 Mg Tablet, 2-3 TAB PO PRN, TAB 07/11/17 Tramadol Hcl (TRAMADOL HCL) 50 Mg Tablet, 50 MG PO Q4-6H PRN for PAIN, TAB 07/11/17 Metoprolol Succinate (TOPROL XL) 25 Mg Tab.er.24h, 1 TAB PO HS, TAB 07/11/17 Warfarin Sodium (WARFARIN SODIUM) 5 Mg Tablet, 5 MG PO sun/mon/sun/sun/sat, TAB 07/11/17 Warfarin Sodium (WARFARIN SODIUM) 5 Mg Tablet, 7.5 MG PO /, TAB 07/11/17 [place]-3 Fatty Acids/Fish Oil (FISH OIL 1,000 MG CAPSULE) 1 Each Capsule, 1 EACH PO DAILY, CAPSULE 07/11/17 Insulin Glargine,Hum.rec.anlog (Guillermo Alexander) 300 Unit/1 Ml Insuln.pen, 30-36 UNITS SC DAILY 07/11/17 Insulin Lispro 100 Un/Ml Pen (HUMALOG 3 ML PEN) 100 Unit/1 Ml Insuln.pen, 18 UNIT SQ TIDAC, DIS.SYR 07/11/17 Aspirin (ASPIR 81) 81 Mg Tablet.dr, 81 MG PO QDAY, TAB 07/11/17 Hydralazine Hcl (HYDRALAZINE HCL) 25 Mg Tablet, 1 TAB PO TID, TAB 03/27/17 Blood Sugar Diagnostic (CONTOUR) 1 Each Strip, 1 EACH MC TID, STRIP 03/27/17 Febuxostat (ULORIC) 80 Mg Tablet, 80 MG PO DAILY 07/03/16 Furosemide (FUROSEMIDE) 40 Mg Tablet, 1 TAB PO sun/mon/sun/sun/sat, TAB 04/06/16 Gabapentin (GABAPENTIN) 300 Mg Capsule, 300 MG PO DAILY, CAPSULE 04/06/16 Pravastatin Sodium (PRAVACHOL) 20 Mg Tablet, 20 MG PO QHS 01/26/14 Cholecalciferol (Vitamin D3) (VITAMIN D) 1,000 Unit Capsule, 2000 UNIT PO DAILY, CAPSULE 01/23/14 Colchicine (COLCRYS) 0.6 Mg Tablet, 0.6 MG PO DAILY 01/23/14 Follow up Referrals: General Surgery - 06/06/19 @ Surgery, General with KATHERINE ALFREDO MD You have a follow up appointment scheduled with Dr. Alfredo on 06/06/19, at 9:15am. Diet: Diabetic Activity: As Tolerated Special Instructions: You may remove the dressing from your left foot on 05/30/19, then you can shower. After showering, apply antibiotic ointment (same kind as last time) to the incision/sutures and apply a new bandage over the amputation site and change this daily. Do not immerse the incision for 1 month. Problem Qualifiers (1) Open wound of third toe of left foot: Encounter type: subsequent encounter Qualified Codes: S91.105D - Unspecified open wound of left lesser toe(s) without damage to nail, subsequent encounter KATHERINE ALFREDO MD May 28, 2019 13:08
--- NOTE | 2019-06-04 12:07 | Post Operative Progress Note ---
Post Operative Progress Note Date: May 28, 2019 Time: 13:00 Surgeon: Sayda Dictation number: [id number] Anesthesia: TIVA by Dr. Gan Pre-Op Diagnosis: Left third toe diabetic ulcer with osteomyelitis Post-Op Diagnosis: PACO Findings: C/W dx Procedure(s): Left third toe amputation Specimen Removed:(May be N/A): Left 3rd toe Complications: NOne Fluids: See anesthesia record Estimated Blood Loss: Minimal Date OP Note Dictated: Jun 04, 2019 Time OP Note Dictated: 12:01 KATHERINE MATT MD Jun 04, 2019 12:07
--- NOTE | 2019-06-04 12:37 | OPERATIVE REPORT 1 ---
EVENT DATE: May 28, 2019 SURGEON: Wolfgang Alfredo MD ANESTHESIOLOGIST: Krish Gan MD ANESTHESIA: TIVA PREOPERATIVE DIAGNOSIS Left third toe diabetic ulcer with osteomyelitis. POSTOPERATIVE DIAGNOSIS Left third toe diabetic ulcer with osteomyelitis. PROCEDURE PERFORMED Left third toe amputation through the proximal phalanx. COMPLICATIONS None. CONDITION Stable. ESTIMATED BLOOD LOSS Minimal. INDICATIONS This is an 83-year-old gentleman who has diabetes and who has had a couple of other toes amputated on his foot and the last one being about 6 weeks ago and healed well, but then was referred back to me with this third toe with an ulcer on the dorsum of his third toe over the interphalangeal joint, but there is actually bone flaking off through the ulcer and exposed bone in the base of the ulcer. I consented him for left third toe amputation and he has agreed to proceed with this procedure. DESCRIPTION OF PROCEDURE The patient was brought to the operating room and placed supine on the operating table. TIVA anesthesia was administered and his left foot was prepped and draped in sterile fashion. I performed a digital ring block with 0.5% ropivacaine plain around the third toe and then marked the skin in a fish-mouth type configuration over the proximal phalanx preserving as much skin as possible. I then made an incision with a 15 blade scalpel through all of the soft tissues down to the bone and then cut the bone off through the interphalangeal joint and then passed the toe off the field. I then used the periosteal elevator, all of the tissues away from the proximal phalanx, and once I had up to good bone, I divided the proximal phalanx with the bone cutter and passed the distal portion of the proximal phalanx off the field to be sent to Pathology. I then irrigated and dried the wound. Made the wound hemostatic with pressure and then closed the flexor and extensor tendons over the bone with interrupted 3-0 Vicryl sutures and then closed the skin with interrupted 3-0 Vicryl subcutaneous sutures and then the actual skin was closed with a running 3-0 Nylon suture. The skin was cleaned and dried and bacitracin was applied to the sutures, followed by a band-aid. He was then brought to the recovery room in good condition having tolerated the procedure without any apparent problems. FERNIE
== END 2019-05-28 14:45 | disposition home or self-care (01) ==
LOC: OR 09:51
PROVIDERS: ATTEND Surgery
DX: E11.621 Type 2 diabetes mellitus with foot ulcer (principal); M86.8X7 Other osteomyelitis, ankle and foot; I11.0 Hypertensive heart disease with heart failure; I50.9 Heart failure, unspecified
CPT/HCPCS: 28810; 36416; 82948; 85025; 85610; 85730; 88305; 88311; A9270; J0295; J2001; J2704; J2795; 82310; 82374; 82435; 82565; 82947; 84132; 84295; 84520

== ENCOUNTER → 2019-06-06 | Outpatient (CLI) | payer MEDICARE ==
[2017-07-17 13:08] VITALS: BMI 28.5
[~2019-06-06] MED LIST changes: -AMPICILLIN/SULBACT (*) 3 GM VL 3 GM in NS(*) 0.9% 100 ML MINI-BAG 100 ML IVPB ONE
[2019-06-06 11:18] LABS: INR 2.75
== END ==
LOC: LAB 10:17
PROVIDERS: ATTEND Nurse Practitioner Family
DX: I45.89 Other specified conduction disorders (principal); Z95.1 Presence of aortocoronary bypass graft; Z86.79 Personal history of other diseases of the circulatory system
CPT/HCPCS: 36415; 85610

== ENCOUNTER → 2019-06-13 | Outpatient (CLI) | payer MEDICARE ==
[2017-07-17 13:08] VITALS: BMI 28.5
[2019-06-13 11:38] LABS: INR 3.13
== END ==
LOC: LAB 10:45
PROVIDERS: ATTEND Nurse Practitioner Family
DX: I45.89 Other specified conduction disorders (principal); Z86.79 Personal history of other diseases of the circulatory system; Z95.1 Presence of aortocoronary bypass graft
CPT/HCPCS: 36415; 85610

== ENCOUNTER → 2019-06-20 | Outpatient (CLI) | payer MEDICARE ==
[2017-07-17 13:08] VITALS: BMI 28.5
[2019-06-20 12:36] LABS: INR 3.39
== END ==
LOC: LAB 12:10
PROVIDERS: ATTEND Nurse Practitioner Family
DX: I45.89 Other specified conduction disorders (principal); Z95.1 Presence of aortocoronary bypass graft; Z86.79 Personal history of other diseases of the circulatory system
CPT/HCPCS: 36415; 85610

== ENCOUNTER → 2019-07-01 | Outpatient (CLI) | payer MEDICARE ==
[2017-07-17 13:08] VITALS: BMI 28.5
[2019-07-01 10:19] LABS: INR 1.07
== END ==
LOC: LAB 09:49
PROVIDERS: ATTEND Nurse Practitioner Family
DX: Z51.81 Encounter for therapeutic drug level monitoring (principal); I45.89 Other specified conduction disorders; Z95.1 Presence of aortocoronary bypass graft; Z86.79 Personal history of other diseases of the circulatory system
CPT/HCPCS: 36415; 85610

== ENCOUNTER 2019-07-04 01:46 | Day surgery (SDC) | payer MEDICARE ==
[2017-07-17 13:08] VITALS: Ht 182.9 cm; Wt 95.7 kg
[~2019-07-04] VITALS: Ht 182.9 cm; Wt 95.7 kg
[2019-07-04 11:09] VITALS: BP 113/70
[2019-07-04] MEDS ORDERED: NS 0.9% IVPB ONE (11:50)
[2019-07-04] MEDS ORDERED: METOPROLOL SUCC XL 25 MG TABCR PO ONE (11:50)
[2019-07-04] MEDS ORDERED: DEXTROSE 50% 50 ML SYR IVP ONE (11:50)
[2019-07-04] MEDS ORDERED: DEXTROSE IVPB ONE (11:50)
[2019-07-04 11:52] LABS: INR 1.08
[2019-07-04] MEDS ORDERED: AMPICILLIN/SULBACT (*) 3 GM VL 3 GM in NS(*) 0.9% 100 ML MINI-BAG 100 ML IVPB ONE (12:00)
[2019-07-04] MEDS ORDERED: NORMOSOL R SOLN(*) 1000 ML BAG 1,000 ML IV PRN (12:00)
[2019-07-04] MEDS ORDERED: FAMOTIDINE 20 MG TAB PO ONE (12:00)
[2019-07-04] MEDS ORDERED: MIDAZOLAM 2 MG/2 ML VIAL IVP PRN (12:00)
[2019-07-04] MEDS ORDERED: LIDOCAINE/SOD BICARB 8.4% SYR ID ONE (12:00)
[2019-07-04] MEDS ORDERED: ROPIVACAINE 0.5% 20 ML VIAL ONE ×2 (12:43→12:45)
[2019-07-04] MEDS ORDERED: NEOMYCIN/POLYMYX/BACITR 30 GM TP ONE (12:45)
[2019-07-04] MEDS ORDERED: MIDAZOLAM 2 MG/2 ML VIAL ONE (12:47)
[2019-07-04 14:10] VITALS: BP 113/70
[2019-07-04 14:30] VITALS: BP 114/54
--- NOTE | 2019-07-04 14:31 | Short(Outpt) Discharge Summary ---
Discharge Summary Reason for Hosp/Final Diag: (1) Open wound of third toe of left foot Status: Chronic Hospital Course & Plan: Left third toe amputation revision/ray amputation completed without problems. Departure Discharge to: Home, Self Care Discharge Instructions Home Meds Reported Medications Furosemide (FUROSEMIDE) 80 Mg Tablet, 80 TAB PO /th, TAB 07/16/17 Acetaminophen (TYLENOL) 325 Mg Tablet, 2-3 TAB PO PRN, TAB 07/11/17 Tramadol Hcl (TRAMADOL HCL) 50 Mg Tablet, 50 MG PO Q4-6H PRN for PAIN, TAB 07/11/17 Metoprolol Succinate (TOPROL XL) 25 Mg Tab.er.24h, 1 TAB PO HS, TAB 07/11/17 Warfarin Sodium (WARFARIN SODIUM) 5 Mg Tablet, 5 MG PO sun/mon/sun/sun/sat, TAB 07/11/17 Warfarin Sodium (WARFARIN SODIUM) 5 Mg Tablet, 7.5 MG PO /, TAB 07/11/17 [place]-3 Fatty Acids/Fish Oil (FISH OIL 1,000 MG CAPSULE) 1 Each Capsule, 1 EACH PO DAILY, CAPSULE 07/11/17 Insulin Glargine,Hum.rec.anlog (Guillermo Alexander) 300 Unit/1 Ml Insuln.pen, 30-36 UNITS SC DAILY 07/11/17 Insulin Lispro 100 Un/Ml Pen (HUMALOG 3 ML PEN) 100 Unit/1 Ml Insuln.pen, 18 UNIT SQ TIDAC, DIS.SYR 07/11/17 Aspirin (ASPIR 81) 81 Mg Tablet.dr, 81 MG PO QDAY, TAB 07/11/17 Hydralazine Hcl (HYDRALAZINE HCL) 25 Mg Tablet, 1 TAB PO TID, TAB 03/27/17 Blood Sugar Diagnostic (CONTOUR) 1 Each Strip, 1 EACH MC TID, STRIP 03/27/17 Febuxostat (ULORIC) 80 Mg Tablet, 80 MG PO DAILY 07/03/16 Furosemide (FUROSEMIDE) 40 Mg Tablet, 1 TAB PO sun/mon/wed/fri/sat, TAB 04/06/16 Gabapentin (GABAPENTIN) 300 Mg Capsule, 300 MG PO DAILY, CAPSULE 04/06/16 Pravastatin Sodium (PRAVACHOL) 20 Mg Tablet, 20 MG PO QHS 01/26/14 Cholecalciferol (Vitamin D3) (VITAMIN D) 1,000 Unit Capsule, 2000 UNIT PO DAILY, CAPSULE 01/23/14 Colchicine (COLCRYS) 0.6 Mg Tablet, 0.6 MG PO DAILY 01/23/14 Follow up Referrals: General Surgery - 07/25/19 @ Surgery, General with KATHERINE ALFREDO MD You have a follow up appointment scheduled with Dr. Alfredo on 07/25/19, at 11:30am. Diet: Diabetic Activity: As Tolerated Special Instructions: You may remove the dressings on your left foot/leg on 07/07/19, then you can shower. After showering, you can redress your left foot as you were doing before surgery and change the dressing daily. When there's no further drainage from the incision you can leave the incision open to air. Problem Qualifiers (1) Open wound of third toe of left foot: Encounter type: subsequent encounter Qualified Codes: S91.105D - Unspecified open wound of left lesser toe(s) without damage to nail, subsequent encounter KATHERINE ALFREDO MD Jul 04, 2019 14:31
[2019-07-04 15:00] VITALS: BP 127/71
[2019-07-04 15:15] VITALS: BP 103/76
[2019-07-04 15:17] VITALS: BP 106/64
--- NOTE | 2019-07-09 14:51 | Miscellaneous Provider Note ---
Miscellaneous Provider Note Note Op report Dictation number: [id number] KATHERINE MATT MD Jul 09, 2019 14:51
--- NOTE | 2019-07-09 15:56 | OPERATIVE REPORT 1 ---
EVENT DATE: July 04, 2019 SURGEON: Wolfgang Alfredo MD ANESTHESIOLOGIST: Darryn Stewart MD ANESTHESIA: Popliteal block provided by Dr. Stewart; local provided by Dr. Alfredo. PREOPERATIVE DIAGNOSIS Left third toe wound at amputation site. POSTOPERATIVE DIAGNOSIS Left third toe wound at amputation site. PROCEDURE PERFORMED Ray amputation revision of left third toe. COMPLICATIONS None. CONDITION Stable. INDICATIONS This is an 83-year old gentleman who has had several toes amputated and I last amputated his left third toe about four or five weeks ago. He healed 90% of it but there is a hole and when I probe the wooden side of a CTA into it I can feel the divided bone. Because of this, I have recommended revision of the amputation and trimming the bone back even further, which may include a ray amputation. DESCRIPTION OF PROCEDURE Patient was brought into the operating room and placed supine on the operating table. Dr. Stewart performed a popliteal block and some sedation and I performed a digital ring block wit 0.5% ropivacaine plain. His foot was prepped and draped in the sterile fashion. A time-out was completed. I then marked the skin including a longitudinal tita from the toe up onto the distal midfoot over the MTP joint. I then made an incision around the toe and included the open wound to exclude it from the final wound. I then made an incision up under the foot and dissected through the tissues all the way down to the bones. Once I was able to identify the distal MTP joint, I used bone cutters and divided the MTP joint and removed the distal metatarsal bone as well as the proximal phalanx. I then made the wound hemostatic with electrocautery and closed the soft tissues with interrupted 3-0 Vicryl sutures and closed the skin with running 2-0 Nylon sutures. I then cleaned and dried his foot and placed antibiotic ointment over the incision and sutures and then covered his foot with Xeroform, dry gauze and then wrapped his foot and ankle with an Omega wrap and an Omega bandage. He was then brought to the recovery room in good condition, having tolerated the procedure without any apparent problems. FERNIE
== END 2019-07-04 16:00 | disposition home or self-care (01) ==
LOC: OR 01:46
PROVIDERS: ATTEND Surgery
DX: S91.105D Unspecified open wound of left lesser toe(s) without damage to nail, subsequent encounter (principal); E78.5 Hyperlipidemia, unspecified; I13.0 Hypertensive heart and chronic kidney disease with heart failure and stage 1 through stage 4 chronic kidney disease, or unspecified chronic kidney disease; I50.9 Heart failure, unspecified; N18.4 Chronic kidney disease, stage 4 (severe); E11.22 Type 2 diabetes mellitus with diabetic chronic kidney disease; I25.2 Old myocardial infarction; Z79.4 Long term (current) use of insulin
CPT/HCPCS: 28810; 36416; 82948; 85610; A9270; J0295; J2250; J2795; J7050